=== PATIENT | female | born 1970 | race Caucasian/White ===

== ENCOUNTER 2022-10-30 07:11 | Outpatient (CLI) | payer BC, SELFPAY ==
--- NOTE | ~2022-10-30 | MR_ITS ---
EXAMINATION: MR brain/brain stem wo con DATE: 10/30/2022 07:44 INDICATION: Dizziness and giddiness. TECHNIQUE: Magnetic resonance imaging (MRI) of the brain and brainstem was performed without intraven ous contrast. COMPARISON: Brain MRI 04/28/2019 FINDINGS: There are scattered areas of nonspecific increased T2-weighted signal intensity in the cere bral white matter, which is within normal limits for the patient's age. There is no intracranial hemo rrhage, acute infarction, or abnormal intracranial mass lesion. The ventricles are normal in size. Th e paranasal sinuses are clear. The orbits are normal. The mastoid air cells are normal. IMPRESSION: 1. Normal aging brain. Reviewed, dictated and finalized at location A. [employer] IMPRESSION: 1. Normal aging brain.
== END 2022-10-30 07:12 ==
PROVIDERS: PCP Internal Medicine; Visit Provider Nurse Practitioner Gerontology
DX: R42 Dizziness and giddiness (principal)
CPT/HCPCS: 70551